=== PATIENT | female | born 1950 | race Caucasian/White ===

== ENCOUNTER → 2018-11-21 | Outpatient (CLI) | payer MEDICARE, OTHER, SELFPAY | END | disposition home or self-care (01) | LOC: LABSPEC 16:00 | PROVIDERS: Family Provider Otolaryngology; PCP Otolaryngology; Referring Provider Otolaryngology; Visit Provider Otolaryngology | DX: S01.00XA Unspecified open wound of scalp, initial encounter (principal); X58.XXXA Exposure to other specified factors, initial encounter; Y93.9 Activity, unspecified; Y92.9 Unspecified place or not applicable | CPT/HCPCS: 87070; 87077; 87205 ==